=== PATIENT | female | born 1990 | race Caucasian/White ===

== ENCOUNTER 2023-11-01 14:35 | Emergency (ER) | payer OTHER, SELFPAY ==
[2023-11-01 14:49] VITALS: BP 123/77
[2023-11-01 15:22] LABS: % Basophils 0.7 % (0-2); % Eosinophils 0.8 % (0-6); % Immature Granulocytes 0.6 % (0-0.5); % Lymphocytes 8.9 % (20.5-51.1); Absolute Basophils 0.1 10^3/uL (0-0.2); Absolute Eosinophils 0.1 10^3/uL (0-0.7); Absolute Immature Granulocytes 0.1 10^3/uL (0-0.05); Absolute Lymphocytes 0.9 10^3/uL (1.2-3.4); Absolute Monocytes 0.6 10^3/uL (0.1-0.6); Absolute Neutrophils 8.2 10^3/uL (1.4-6.5); Hematocrit 35.5 % (37.0-47.0); Hemoglobin 12.3 g/dL (12.0-16.0); Mean Corp Hgb Conc. 34.6 g/dL (33.0-37.0); Mean Corpuscular Hgb 28.5 pg (27.0-31.0); Mean Corpuscular Volume 82.4 fL (81.0-99.0); Mean Platelet Volume 10.8 fL (7.4-10.4); Nucleated Red Blood Cells % 0 %; Platelet Count 270 10^3/uL (130-400); Red Blood Cell Count 4.31 10^6/uL (4.20-5.40); White Blood Cell Count 9.9 10^3/uL (4.8-10.8)
--- NOTE | 2023-11-01 15:34 | ED.GENMED ---
History of Present Illness
General
Chief Complaint: Abdominal Symptoms
Time Seen by Provider: 11/01/23 15:34
Travel History
Have you had any contact with someone who has COVID-19?: No
Do you have any symptoms of coronavirus? Fever > 100 degrees, chills, cough, shortness of breath, sore throat, loss of taste or smell, muscle aches, or headache?: No
History of Present Illness
History of Present Illness:
HPI: Patient is 13 weeks and was concerned about dehydration. She has decreased urinary output. This is patient's first . She has had some intermittent episodes of nausea and vomiting over the last few weeks but this is the
worst it has been.
EXAM:
GENERAL: Well appearing in no distress
HEENT: Slightly dry oral mucosa
CARDIOVASCULAR: No murmurs, normal heart rate and rhythm, No chest wall tenderness
PULMONARY: No respiratory distress, breath sounds are clear and equal
ABDOMEN: Soft with no peritoneal signs, no tenderness
NEUROLOGIC: Excellent strength all extremities, no coordination deficits
PSYCHIATRIC: Appropriate mental status, normal insight and judgement
EXTREMITIES: Nontender, no edema, moves all extremities equally
SKIN: No rash, no lesions
ED COURSE:
4 PM: I initially evaluated patient
NUMBER AND COMPLEXITY OF PROBLEMS ADDRESSED AT THE ENCOUNTER
� Chronic conditions affecting care: Has history of thyroiditis, anxiety/depression
� Acute Exacerbation and/or Progression of Chronic Illness:
� Differential Diagnosis includes:
AMOUNT AND/OR COMPLEXITY OF DATA TO BE REVIEWED AND ANALYZED
� I performed an independent evaluation of and my interpretation is:
EKG:
CT:
X-rays:
Laboratory Studies:CBC unremarkable, renal function is normal, bicarb slightly low at 20, sodium is slightly low at 132, urine does show ketones 3+ and a specific gravity 1.025
Other:
� Review of other/old records: The patient was here in the past related to low back strain and asthma
� Clinical information was obtained by an independent historian: I spoke to [id number] and at bedside
� Prescriptions/Medications Considered but not given:
� Further testing considered but not performed:
RISK OF COMPLICATIONS AND/OR MORBIDITY OR MORTALITY OF PATIENT MANAGEMENT
� Social determinants of health affecting care: Lives at home
� Discussion with other providers:
� Escalation of care including admission/observation vs risk of discharge considered: The patient was given 3 L of fluid. Overall she feels improved at 7:45 PM however did earlier request something for the nausea. She preferred
Reglan. She was given Reglan and did tolerate this.
Past History
Past History
ED Past Medical History: Asthma and Other (Seasonal allergies)
ED Past Surgical History: Other (Deviated septum repair)
Social History
Tobacco: Non-smoker
Drug: None
Personal: Single
Living: with family
Employment: Employed ([employer])
Family History
Family History: Other (Noncontributory)
Phy Exam
Physical Exam
Physical Exam:
See HPI
Course
Orders/Labs/Results
Orders:
Orders
11/01/23 15:06
CBC/With Diff [Complete Blood Count/With Diff] Urgent
Comprehensive Metabolic Panel Urgent
11/01/23 15:35
0.9% Sodium Chloride 1000 ml [Nss] 1,000 ml IV BOLUS
0.9% Sodium Chloride 1000 ml [Nss] 1,000 ml IV BOLUS
11/01/23 15:50
Urinalysis Urgent
Date Specimen was Collected: 11/01/23
Time Specimen was Collected: 15:48
Urine Microscopic Urgent
Date Specimen was Collected: 11/01/23
Time Specimen was Collected: 15:48
11/01/23 18:44
0.9% Sodium Chloride 1000 ml [Nss] 1,000 ml IV BOLUS
Metoclopramide [Reglan] 10 mg IV NOW STA
Abnormal Lab Results
11/01/23 11/01/23
15:06 15:50
Hct 35.5 L %
(37.0-47.0)
MPV 10.8 H fL
(7.4-10.4)
Abs Immat Gran (auto) 0.1 H 10^3/uL
(0-0.05)
Absolute Neuts (auto) 8.2 H 10^3/uL
(1.4-6.5)
Absolute Lymphs (auto) 0.9 L 10^3/uL
(1.2-3.4)
Immature Gran % 0.6 H %
(0-0.5)
Neutrophils % 83.0 H %
(42.2-75.2)
Lymphocytes % 8.9 L %
(20.5-51.1)
Sodium 132 L mmol/L
(135-145)
Carbon Dioxide 20 L mmol/L
(22-30)
Creatinine 0.4 L mg/dL
(0.6-1.0)
Urine Ketones 3+ A
(Negative)
Urine Occult Blood Trace A
(Negative)
Ur Leukocyte Esterase Trace A
(Negative)
Urine Bacteria Few A
(Negative)
11/01/23 15:06
11/01/23 15:06
Vital Signs
Initial and Last Documented VS:
Initial Vital Signs
Temp Pulse Resp BP Pulse Ox
99.7 F 98 16 123/77 98
11/01/23 14:49 11/01/23 14:49 11/01/23 14:49 11/01/23 14:49 11/01/23 14:49
Last Documented Vital Signs
Temp Pulse Resp BP Pulse Ox
99.7 F 98 16 123/77 98
11/01/23 14:49 11/01/23 14:49 11/01/23 14:49 11/01/23 14:49 11/01/23 14:49
Procedures
Other
Indication for procedure:: Eval cardiac activity
Procedure completed by: Me, Dr. Crane
Consent form signed: No
Additional Procedure:
I used transabdominal ultrasound and visualized heart activity with estimate of heart rate of 160
*Critical Care Note
Total Time (30-74mins, 75-104mins- exclusive of procedures): Not Applicable
ED Attending Note
-
Portions of this chart may have been created with voice recognition software.� Occasional wrong word or��sound alike� substitutions may have occurred due to the inherent limitations of voice recognition software.
Discharge Plan
Departure
Prescriptions:
No Action
norethindrone ac-eth estradiol [Loestrin 1.03/01 ()] 1 EACH tablet
1 ea PO DAILY
loratadine 10 MG tablet
10 mg PO DAILY
Referrals:
Donn Arcos MD [Family Provider] -
Interventions
Interventions:
*Risk Screen - Suicide Last Done: 11/01/23 15:28
*General Assessment Last Done: 11/01/23 15:28
ED- Fall Risk Assessment Last Done: 11/01/23 15:28
*ED COVID-19 Vaccine History Last Done: 11/01/23 15:28
TU-Lvboks-Bbmpzujckk Assessment Last Done: 11/01/23 15:14
[2023-11-01 15:47] LABS: ALT (SGPT) 20 U/L (0-35); AST (SGOT) 31 U/L (14-36); Albumin 4.4 g/dl (3.5-5.0); Alkaline Phosphatase 48 U/L (38-126); Blood Urea Nitrogen 7 mg/dl (7-17); Carbon Dioxide 20 mmol/L (22-30); Chloride 104 mmol/L (98-107); Glucose 89 mg/dl (70-99); Potassium 4.3 mmol/L (3.5-5.1); Sodium 132 mmol/L (135-145); Total Bilirubin 0.7 mg/dl (0.2-1.3); Total Protein 7.5 g/dl (6.3-8.2); eGFR > 60.00
[2023-11-01] MEDS: NSS 1000 IV ×3 (15:49→19:04)
[2023-11-01 15:57] LABS: Urine Albumin Trace (Neg - Trace); Urine Bilirubin Negative (Negative); Urine Character Clear (Clear); Urine Color Yellow; Urine Glucose Negative (Negative); Urine Ketone 3+ (Negative); Urine Leukocyte Trace (Negative); Urine Nitrite Negative (Negative); Urine Occult Blood Trace (Negative); Urine Specific Gravity 1.025 (<1.030); Urine Urobilinogen Negative (Neg - 1+)
[2023-11-01 16:52] LABS: Urine Squamous Cell 26-30 /LPF (Few)
[2023-11-01 16:53] LABS: Urine Bacteria Few (Negative); Urine Red Blood Cell 0-2 /HPF (0-2)
[2023-11-01] MEDS: REGLAN 10 MG IV (19:05)
== END 2023-11-01 20:10 | disposition home or self-care (01) ==
LOC: EMR 14:35
PROVIDERS: Emergency Medicine; EMERGENCY PHYSICIAN Emergency Medicine; FAMILY PHYSICIAN Family Medicine
DX: E86.0 Dehydration (principal); O21.9 Vomiting of pregnancy, unspecified; Z3A.13 13 weeks gestation of pregnancy
CPT/HCPCS: 99284; 96374; 96361 ×3; 80053; 81003; 81015; 85025